=== PATIENT | female | born 1960 | race Caucasian/White ===

== ENCOUNTER 2017-10-25 00:20 | Observation (INO) | payer OTHER ==
[2017-10-25 01:37] LABS: ADD MAN DIFF? NO; BASOPHIL # 0.1 10^3/ul (0.0-0.1); BASOPHILS % 0.7 % (0.0-2.0); EOSINOPHILS # 0.1 10^3/ul (0.0-0.5); EOSINOPHILS % 1.8 % (0.0-7.0); HEMATOCRIT 38.1 % (37.0-47.0); HEMOGLOBIN 12.4 g/dl (12.0-16.0); LYMPHOCYTES # 2.8 10^3/ul (0.8-2.9); LYMPHOCYTES % 36.5 % (15.0-51.0); MEAN CORPUSCULAR HEMOGLOBIN 27.7 pg (29.0-33.0); MEAN CORPUSCULAR HGB CONC 32.5 g/dl (32.0-37.0); MEAN PLATELET VOLUME 11.3 fl (7.4-10.4); MONOCYTE # 0.4 10^3/ul (0.3-0.9); NEUTROPHIL # 4.2 10^3/ul (1.6-7.5); NEUTROPHILS % 55.7 % (39.0-77.0); PLATELET COUNT 276 10^3/UL (140-415); RED BLOOD COUNT 4.48 10^6/ul (4.20-5.40); RED CELL DISTRIBUTION WIDTH 12.4 % (11.5-14.5)
[2017-10-25 01:37] LABS: WHITE BLOOD COUNT 7.6 10^3/ul (4.8-10.8)
[2017-10-25 01:57] LABS: ANION GAP 15 (8-16); BLOOD UREA NITROGEN 17 mg/dl (7-20); CALCIUM 9.2 mg/dl (8.4-10.2); CARBON DIOXIDE 27 mmol/L (21-31); CHLORIDE 105 mmol/L (97-110); CREATININE 0.67 mg/dl (0.44-1.00); GLUCOSE 99 mg/dl (70-220); POTASSIUM 3.9 mmol/L (3.5-5.1); SODIUM 143 mmol/L (135-144)
[2017-10-25] MEDS: ASPIRIN 325 MG TAB PO (01:59)
[2017-10-25] MEDS: NITROGLYCERIN 2% 1 GM OINT PKT TD (02:02)
[2017-10-25 02:21] LABS: TROPONIN-I < 0.012 ng/ml (0.00-0.12)
[2017-10-25] MEDS ORDERED: NITROGLYCERIN (SL) 0.4 MG TAB SL (04:00)
[2017-10-25] MEDS ORDERED: ONDANSETRON 4 MG TAB PO (04:00)
[2017-10-25] MEDS ORDERED: ACETAMINOPHEN 325 MG TAB PO (04:00)
[2017-10-25] MEDS ORDERED: morphine 2 MG INJ IV (04:00)
[2017-10-25 05:53] LABS: CREATINE KINASE 50 IU/L (23-200)
[2017-10-25 05:58] LABS: ADD UMIC NO; UR ASCORBIC ACID NEGATIVE (NEGATIVE); UR BILIRUBIN (Dip) NEGATIVE (NEGATIVE); UR BLOOD (Dip) NEGATIVE (NEGATIVE); UR CLARITY CLEAR (CLEAR); UR COLOR COLORLESS (YELLOW); UR GLUCOSE (Dip) NEGATIVE (NEGATIVE); UR KETONES (Dip) NEGATIVE (NEGATIVE); UR LEUKOCYTE ESTERASE (Dip) NEGATIVE Leu/ul (NEGATIVE); UR NITRITE (Dip) NEGATIVE (NEGATIVE); UR SPECIFIC GRAVITY (Dip) 1.004 (1.003-1.030); UR TOTAL PROTEIN (Dip) NEGATIVE (NEGATIVE); UR UROBILINOGEN (Dip) NEGATIVE (NEGATIVE)
[2017-10-25 06:01] LABS: CK INDEX 0.5; CK-MB 0.26 ng/ml (0.0-2.4)
[2017-10-25 06:05] LABS: TROPONIN-I < 0.012 ng/ml (0.00-0.12)
[2017-10-25 07:19] LABS: D-DIMER 391.83 ng/ml (<460)
[2017-10-25 07:19] LABS: HEMOGLOBIN A1C 5.5 % (0-5.9)
[2017-10-25] MEDS: ASPIRIN 81 MG TAB PO ×2 (08:18→08:23)
[2017-10-25] MEDS: NACL 0.9% 3 ML SYG IV (08:25)
[2017-10-25 10:29] LABS: CHOLESTEROL 251 mg/dl (100-200)
[2017-10-25 10:29] LABS: CHOL/HDL RATIO 5.8 RATIO; HDL CHOLESTEROL 43 mg/dl (37-92); LDL CHOLESTEROL,CALCULATED 170 mg/dl; TRIGLYCERIDES 192 mg/dl (0-149)
== END 2017-10-25 12:38 | disposition home or self-care (01) ==
LOC: TEL 03:25 → E/R 13:32
PROVIDERS: Family Medicine
DX: R07.9 Chest pain, unspecified (principal); I10 Essential (primary) hypertension; E78.5 Hyperlipidemia, unspecified; R30.0 Dysuria; M32.9 Systemic lupus erythematosus, unspecified; Z79.82 Long term (current) use of aspirin; Z88.8 Allergy status to other drugs, medicaments and biological substances; Z91.013 Allergy to seafood
CPT/HCPCS: 36415; 71045; 80048; 80061; 81003; 82550; 82553; 83036; 84443; 84484; 85025; 85378; 93005; 93306; 96374; 99285-25; G0378